=== PATIENT | female | born 1990 | race Caucasian/White ===

== ENCOUNTER 2017-01-15 19:40 | Emergency (ER) | payer MEDICAID ==
[~2017-01-15] VITALS: Ht 154.9 cm; Wt 55.0 kg
[2017-01-15] MEDS ORDERED: ASPIRIN 81MG TABLET PO STA (21:25)
[2017-01-15] MEDS ORDERED: NITROGLYCERIN 0.4MG TABLET SL SL PRN (21:30)
[2017-01-15 21:43] LABS: BASOPHILS % 0.4 % (0.0-2.0); EOSINOPHILS % 0.1 % (0.0-5.0); HEMATOCRIT. 37.7 % (36.0-48.0); HEMOGLOBIN. 12.7 g/dL (12.0-16.0); LYMPHOCYTES % 9.9 % (20.0-50.0); MEAN CORPUSCULAR HEMOGLOBIN 29.6 pg (28.0-32.0); MEAN CORPUSCULAR VOLUME 87.6 fL (81.0-99.0); MEAN PLATELET VOLUME 7.2 fl (7.4-10.4); MONOCYTES % 3.3 % (2.0-8.0); NEUTROPHILS % 86.3 % (40.0-76.0); PLATELET 389 x1000/uL (130-400)
[2017-01-15 21:49] LABS: CHLORIDE 103 mEq/L (98-107)
[2017-01-15 21:53] LABS: D-DIMER 0.21 mg/L FEU (<0.50); PARTIAL THROMBOPLASTIN TIME 25.5 sec (23.4-31.0); PROTHROMBIN TIME 10.7 sec (9.4-11.6)
[2017-01-15 21:55] LABS: *AMPHETAMINES SCREEN URINE NEGATIVE (NEGATIVE); *BARBITURATES SCREEN URINE NEGATIVE (NEGATIVE); *BENZODIAZEPINES SCREEN URINE NEGATIVE (NEGATIVE); *COCAINE SCREEN URINE NEGATIVE (NEGATIVE); METHADONE URINE SCREEN NEGATIVE (NEGATIVE); OPIATES URINE SCREEN NEGATIVE (NEGATIVE); PHENCYCLIDINE URINE SCREEN NEGATIVE (NEGATIVE)
[2017-01-15 21:55] LABS: HCG SCREEN NEGATIVE
[2017-01-15 21:57] LABS: CARBON DIOXIDE 29 mEq/L (21-32)
[2017-01-15 21:59] LABS: CANNABINOID URINE SCREEN PRESUMTIVE POSITIVE (NEGATIVE)
[2017-01-15 21:59] LABS: TROPONIN I < 0.02 ng/mL (0.00-0.04)
[2017-01-16 02:08] VITALS: BP 131/73
== END 2017-01-16 02:09 | disposition home or self-care (01) ==
LOC: ER 19:44
DX: F12.929 Cannabis use, unspecified with intoxication, unspecified (principal); R07.9 Chest pain, unspecified; F41.9 Anxiety disorder, unspecified; F17.200 Nicotine dependence, unspecified, uncomplicated; Z79.82 Long term (current) use of aspirin
CPT/HCPCS: 36415; 71010; 80048; 80305; 83880; 84443; 84484; 84703; 85025; 85379; 85610; 85730; 93005; 99285; Z7610